=== PATIENT | male | born 1945 | race Caucasian/White ===

== ENCOUNTER → 2018-09-19 | Outpatient (REF) | payer OTHER | LOC: M LAB LCGH 15:42 | PROVIDERS: ATTEND Surgery | DX: R22.32 Localized swelling, mass and lump, left upper limb (principal) ==

== ENCOUNTER → 2019-02-09 | Outpatient (CLI) | payer MEDICARE, OTHER ==
--- NOTE | 2019-02-09 21:16 | ECGEPIP ---
[facility] Test Date: 2019-02-09 Pat Name: TIFFANIE MALCOLM Department: Room: - Gender: Male Community Assistant: FERNANDO : 1945 Requested By: Nathalie Cruz Order Number: [id number] Reading MD: Aleksandr Bowser Measurements Intervals [place] Rate: 72 P: 40 [place]: 275 QRS: -25 QRSD: 87 T: -3 QT: 366 QTc: 401 Interpretive Statements SINUS RHYTHM WITH FIRST DEGREE AV BLOCK MINIMAL VOLTAGE CRITERIA FOR LVH, CONSIDER NORMAL VARIANT POOR R WAVE PROGRESSION NO PRIOR Electronically Signed on 02-09-2019 21:16:41 EST by Aleksandr Bowser
== END ==
LOC: M EKG 14:14
PROVIDERS: ATTEND Internal Medicine Medical Oncology
DX: D03.8 Melanoma in situ of other sites (principal)

== ENCOUNTER → 2019-02-11 | Outpatient (CLI) | payer MEDICARE, OTHER ==
--- NOTE | 2019-02-13 13:27 | REP ---
PET/CT: History: Staging metastatic malignant melanoma, left axilla. Status post left axillary lymph node dissection. Comparisons: No comparison study TECHNIQUE: 73 minutes following the intravenous injection of a 8.5 mCi dose of F-18 FDG, three-dimensional PET scintigraphy is acquired from the skull vertex to the toes. Triplanar noncontrast CT scanning is acquired through the same anatomic range for attenuation correction, and image registration with scan parameters optimized to minimize radiation exposure to the patient. PET scintigraphy and CT datasets were fused and displayed on a workstation with multiplanar and projection display capability. PET/CT Findings: There is no abnormal hypermetabolic uptake in the lower extremities. Head and neck soft tissues are unremarkable. No abnormal hypermetabolic uptake is seen with in the chest. There are surgical clips in the left axillary soft tissues post lymph node dissection and there is some mildly elevated axillary soft tissue uptake adjacent to these consistent with postoperative inflammation, maximum standard uptake value 3.72. There is no evidence of supraclavicular or right-sided axillary amira uptake. No abnormal amira uptake is seen in the abdomen or pelvis. Normal hepatic and splenic uptake is seen. No abnormal skeletal uptake is appreciated. Impression: Minimal uptake in the left axillary soft tissues consistent with postoperative change. No PET CT evidence of metastatic disease. Electronically Signed by Shahab Brown MD 02/13/2019 01:19 P
== END ==
LOC: M PLARAD 10:17
PROVIDERS: ATTEND Internal Medicine Medical Oncology
DX: C77.3 Secondary and unspecified malignant neoplasm of axilla and upper limb lymph nodes (principal)
CPT/HCPCS: 78816; A9552

== ENCOUNTER → 2019-03-25 | Outpatient (REF) | payer MEDICARE, OTHER | LOC: M LAB REF 12:09 | PROVIDERS: ATTEND Nurse Practitioner Adult Health | DX: Z79.899 Other long term (current) drug therapy (principal) ==

== ENCOUNTER 2019-04-07 16:02 | Inpatient (IN) | payer MEDICARE, OTHER ==
[~2019-04-07] VITALS: Ht 170.2 cm; Wt 79.2 kg
[2019-04-07] MEDS ORDERED: OPDI1INJ IV (16:14)
[2019-04-07 16:51] LABS: BASO # 0.1 10^3/uL (0.0-0.2); BASO % 1.3 % (0.0-1.0); EOS # 0.2 10^3/uL (0.0-0.5); EOS % 4.4 % (0.0-3.0); HEMATOCRIT 46.7 % (42.0-52.0); HEMOGLOBIN 16.2 g/dl (13.5-17.5); LYMPH # 1.6 10^3/uL (1.5-5.0); LYMPH % 30.8 % (24.0-44.0); MEAN CORPUSCULAR HEMOGLOBIN 31.6 pg (27.0-33.0); MEAN CORPUSCULAR HGB CONC 34.7 g/dl (32.0-36.5); MEAN CORPUSCULAR VOLUME 91.2 fl (80.0-96.0); MONO # 0.6 10^3/uL (0.0-0.8); MONO % 11.8 % (0.0-5.0); NEUTROPHILS # 2.7 10^3/uL (1.5-8.5); NEUTROPHILS % 51.5 % (36.0-66.0); PLATELET COUNT, AUTOMATED 219 10^3/uL (150-450); RED BLOOD COUNT 5.12 10^6/uL (4.30-6.10); WHITE BLOOD COUNT 5.3 10^3/uL (4.0-10.0)
[2019-04-07 17:03] LABS: INR 1.14; PROTHROMBIN TIME 14.4 SECONDS (11.8-14.0)
--- NOTE | 2019-04-07 17:03 | REP ---
CT brain without contrast: History: Neurologic symptoms. Comparison brain CT imaging is a pre and postcontrast study from earlier today, done at 10:[address] findings: In the interval since the study done earlier today, there is some faint contrast enhancement within the interior of the two temporal lobe masses one on each side. Previously, these had large low density areas which implied cystic components. The gradual contrast enhancement suggests that they are not cystic. In any event, the metastatic pattern is unchanged morphologically. There is no evidence of hemorrhage or acute infarction. Impression: Multiple enhancing intracranial mass lesions with vasogenic edema morphologically unchanged from the study done 10:30 this morning except for the appearance of delayed contrast enhancement within the interior of the two largest lesions. The findings are consistent with intracranial metastatic disease. There is no evidence of hemorrhage, infarct or midline shift. Electronically Signed by Shahab Brown MD 04/08/2019 01:13 P
[2019-04-07 17:04] LABS: PARTIAL THROMBOPLASTIN TIME 31.2 SECONDS (25.0-38.4)
--- NOTE | 2019-04-07 17:12 | REP ---
Portable chest x-ray: Single view. History: CVA. Findings: Monitoring electrodes are seen. Surgical clips are noted in the left axilla. The lungs are symmetrically somewhat under aerated but free of infiltrate. Pleural angles are sharp. Heart size is borderline. Pulmonary vasculature is not increased. Impression: Relatively low level of inspiration. Surgical clips in the left axillary soft tissues. Borderline heart size. Otherwise no acute disease. Electronically Signed by Shahab Brown MD 04/07/2019 05:03 P
[2019-04-07 17:19] LABS: BLOOD UREA NITROGEN 17 MG/DL (7-18); CALCIUM LEVEL 9.4 MG/DL (8.8-10.2); CARBON DIOXIDE LEVEL 26 MEQ/L (21-32); CHLORIDE LEVEL 106 MEQ/L (98-107); CK-MB VALUE MASS 2.2 NG/ML (<3.6); CPK CREATINE PHOSPHOKINASE 126 U/L (39-308); CREATININE FOR GFR 1.16 MG/DL (0.70-1.30); GLOMERULAR FILTRATION RATE > 60.0 (>42); GLUCOSE, FASTING 91 MG/DL (70-100); MB/CK RELATIVE INDEX 1.75 (< OR =4); POTASSIUM SERUM 4.5 MEQ/L (3.5-5.1); SODIUM LEVEL 139 MEQ/L (136-145); TROPONIN I < 0.02 NG/ML (< 0.10)
[2019-04-07] MEDS ORDERED: dexameTHASONE 4 MG/ML 1ML VIAL (J1100) IV ONE (17:30)
[2019-04-07] MEDS ORDERED: OPDI240I IV (18:04)
[2019-04-07] MEDS ORDERED: ACETAMINOPHEN TAB 650MG DOSE (2X325MG) PO PRN (19:00)
[2019-04-07 19:30] VITALS: BP 149/88
--- NOTE | 2019-04-07 19:40 | IPNPDOC ---
Text Note Date of Service The patient was seen on 04/07/19. NOTE PRIMARY CARE PROVIDER:Dr. 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 He is currently undergoing chemotherapy nivolumab. Plan for 12 cycles. Completed the second Presents today with his son with complaint of a sudden left-sided facial droop, word finding difficulty, and left-sided facial numbness. According to patient the event had resolved prior to hospital presentation. He denied dysphagia, den ies chest pain, denies shortness of breath, denied vision changes, denies any headache, denied any dizziness, denied neck pain. REVIEW OF SYSTEMS: CONSTITUTIONAL: No fevers, denies chills, denies weight loss, denies lethargy HEENT: No rhinorrhea, no itchy eyes, no congesion, No tonsilor exudates CARDIOVASCULAR: No murmurs no palpitations and arrhythmias RESPIRATORY: Not cough, No SOB, no issues to report GASTROINTESTINAL: No nausea, no vomiting, no difficulty swallowing, no pain with eating, no diarrhea HEMATOLOGICAL: No bleeding GENITOURINARY:No Issues HEMATOLOGIC/LYMPHATIC: No swelling, No bleeding NEURO: Admitted to facial numbness and drooping that has resolved PAST MEDICAL HISTORY: Malignant melanoma with metastases to brain and bone Left axillary excisional biopsy 09/19/2018. Left axillary lymph node dissection 11/04/2018. SOCIAL HISTORY: Patient is a never smoker, never drinker. . Has five grown children. 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 FAMILY HISTORY: Maternal aunt had melanoma. Maternal grandfather may have had melanoma. A sister had ovarian cancer and mother a at 76 of lung cancer. ALLERGIES: Please see below. PE VITALS: see below GENERAL APPEARANCE: Alert no acute distress. Orientated to person, condition, rule out PTE going to see LUNGS: Clear to auscultation bilaterally. HEART: Normal S1, S2. No murmurs, no rubs, no gallops ABDOMEN: Soft. No masses. Bowel sounds are present. TRUNK/SPINE:Straight. EXTREMITIES: Moves all extremities equally. No gross deformities. PULSES: 2+ upper and lower extremity . NUERO: Normal ggxgqe-nvvo-tyexrs, cranial nerves II through XII intact, pupils round and reactive to light HOME MEDICATIONS: Please see below. LABORATORY DATA: See below. IMAGING: Chest XRAY:Relatively low level of inspiration. Surgical clips in the left axillary soft tissues. Borderline heart size. Otherwise no acute disease. HEAD CT: 16:22 Multiple enhancing intracranial mass lesions with vasogenic edema morphologically unchanged from the study done 10:30 this morning except for the appearance of delayed contrast enhancement within the interior of the two largest lesions. The findings are consistent with intracranial metastatic disease. There is no evidence of hemorrhage, infarct or midline shift. HEAD CT: 11:05 Bilateral supratentorial masses with enhancement and fairly prominent vasogenic edema consistent with metastatic disease. Individual lesions as described above. The largest lesion is in the left temporal lobe. This is 5 cm in diameter. MICROBIOLOGY: Please see below. 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 PLAN: 1. Facial droop difficulty with word finding, and facial numbness secondary metastasis to brain / cerebral edema - was called by the ER Attending -IV Decadron every 6 hours to decrease cerebral edema -Patient and patient's family has been extensively counseled on the possibility of intracranial bleed, due to increased intracranial pressure and brain metastases, along with cerebral edema. Patient and family, along with patient's caregiver verbalized understanding. They did not want to be transferred to another hospital and didn't want any neurosurgical intervention. -Should patient developed intracranial bleeding overnight. Family wants trial. CPR without intubation. 2. Bradycardia possibly 2/2 [place]'s Reflex -Telemetry -Continue to monitor 3.Chronic Hypertension -Low dose Norvasc DVT px w Lovenox Disposition: Guarded based on patient's cancer prognosis VS,Fishbone, I+O VS, Fishbone, I+O Laboratory Tests 04/07/19 16:25 Vital Signs Date Time Temp Pulse Resp B/P (MAP) Pulse Ox O2 Delivery O2 Flow Rate FiO2 04/07/19 18:00 58 153/79 (103) 96 Room Air 04/07/19 16:05 98.4 19 GME ATTESTATION GME ATTESTATION My faculty preceptor for this patient encounter was physically present during the encounter and was fully available. All aspects of the patient interview, examination, medical decision making process, and medical care plan development were reviewed and approved by the faculty preceptor. The faculty preceptor is aware and concurs with the plan as stated in the body of this note and will attest to such by his/her cosignature. ATTENDING NOTE I examined the patient at 555PM, discussed the case with the resident, reviewed the note and agree with the findings as documented. JASVIR DIETRICH DO Apr 07, 2019 19:40 CONRAD BRICE MD Apr 08, 2019 07:11
--- NOTE | 2019-04-07 21:06 | ECGEPIP ---
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
[2019-04-07 23:59] VITALS: BP 112/69
[2019-04-08 04:00] VITALS: BP 110/71
[2019-04-08 05:33] LABS: ALBUMIN 3.5 GM/DL (3.2-5.2); ALT/SGPT 24 U/L (12-78); BILIRUBIN,TOTAL 0.5 MG/DL (0.2-1.0); BLOOD UREA NITROGEN 18 MG/DL (7-18); CALCIUM LEVEL 9.3 MG/DL (8.8-10.2); CARBON DIOXIDE LEVEL 21 MEQ/L (21-32); CHLORIDE LEVEL 108 MEQ/L (98-107); CREATININE FOR GFR 1.13 MG/DL (0.70-1.30); GLOMERULAR FILTRATION RATE > 60.0 (>42); GLUCOSE, FASTING 136 MG/DL (70-100); POTASSIUM SERUM 4.4 MEQ/L (3.5-5.1); SODIUM LEVEL 137 MEQ/L (136-145); TOTAL PROTEIN 7.5 GM/DL (6.4-8.2)
[2019-04-08 08:00] VITALS: BP 136/88
[2019-04-08] MEDS: ENOXAPARIN 40 MG/0.4 ML SYRINGE (J1650) SC SCH (10:08)
[2019-04-08] MEDS ORDERED: AMLO25TA PO (10:35)
[2019-04-08 12:00] VITALS: BP 132/78
--- NOTE | 2019-04-08 14:04 | IPNPDOC ---
Text Note Date of Service The patient was seen on 04/08/19. 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 He is currently undergoing chemotherapy nivolumab. Plan for 12 cycles. Completed the second cycle. SUBJECTIVE: Patient was examined at bedside this morning. He has no acute complaints. He had no overnight activities.Denies chest pain, denies nausea, denied vomiting, denies changes in vision. Denies any recent illness. Denies shortness of breath, or difficulty breathing. OBJECTIVE: PHYSICAL EXAMINATION: GENERAL APPEARANCE: Patient is alert, surrounded by family HEENT: Pupils round and equally reactive to light LUNGS: Clear to auscultation bilaterally. HEART: Normal S1, S2. No murmurs, no rubs, no gallops EXTREMITIES: Moves all extremities equally. No gross deformities. PULSES: 2+ upper and lower extremity NEURO: Cranial nerves II-12 intact, normal bkljcv-rvzm-sbhqyu, able to follow commands, muscle strength 5 out of 5 in bilateral upper and lower extremity LABORATORY DATA: Please see below. IMAGING: Chest XRAY:Relatively low level of inspiration. Surgical clips in the left axillary soft tissues. Borderline heart size. Otherwise no acute disease. HEAD CT: 16:22 Multiple enhancing intracranial mass lesions with vasogenic edema morphologically unchanged from the study done 10:30 this morning except for the appearance of delayed contrast enhancement within the interior of the two largest lesions. The findings are consistent with intracranial metastatic disease. There is no evidence of hemorrhage, infarct or midline shift. HEAD CT: 11:05 Bilateral supratentorial masses with enhancement and fairly prominent vasogenic edema consistent with metastatic disease. Individual lesions as described above. The largest lesion is in the left temporal lobe. This is 5 cm in diameter. 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 PLAN: 1. Facial droop difficulty with word finding, and facial numbness secondary metastasis to brain / cerebral edema - Consulted oncology -Radiation oncology (Dr. Sainz) Consulted -IV Decadron every 6 hours to decrease cerebral edema -Patient and patient's family has been extensively counseled on the possibility of intracranial bleed, due to increased intracranial pressure and brain metastases, along with cerebral edema. Patient and family, along with patient's caregiver verbalized understanding. They did not want to be transferred to another hospital and didn't want any neurosurgical intervention. -Should patient developed intracranial bleeding overnight. Family wants trial. CPR without intubation. -Facial dropping has resolved, Patient continues to have difficulty with word finding 2. Bradycardia possibly 2/2 [place]'s Reflex -Telemetry -Continue to monitor 3.Chronic Hypertension -Low dose Norvasc (2.5 mg) 4. Rehab -He has been cleared by PT 5. DVT px w Lovenox Disposition: Guarded based on patient's cancer prognosis VS,Fishbone, I+O VS, Fishbone, I+O Laboratory Tests 04/07/19 16:25 04/08/19 04:35 Vital Signs Date Time Temp Pulse Resp B/P (MAP) Pulse Ox O2 Delivery O2 Flow Rate FiO2 04/08/19 12:00 97.8 91 17 132/78 (96) 91 Room Air I&O- Last 24 Hours up to 6 AM 04/08/19 06:00 Intake Total 360 ml Output Total 550 ml Balance -190 ml GME ATTESTATION GME ATTESTATION My faculty preceptor for this patient encounter was physically present during the encounter and was fully available. All aspects of the patient interview, examination, medical decision making process, and medical care plan development were reviewed and approved by the faculty preceptor. The faculty preceptor is aware and concurs with the plan as stated in the body of this note and will attest to such by his/her cosignature. ATTENDING NOTE I examined the patient at 820am, reviewed and edited the note and agree with the findings as documented by the resident. JASVIR DIETRICH DO Apr 08, 2019 14:04 CONRAD BRICE MD Apr 08, 2019 17:43
[2019-04-08 16:00] VITALS: BP 136/95
[2019-04-08 20:00] VITALS: BP_SYST 123; BP_DIAS 74; BP_DIAS 78
--- NOTE | 2019-04-08 20:30 | HPEPDOC ---
[facility] Medical History & Physical Date of Admission Apr 07, 2019 Date of Service: Apr 07, 2019 Attending Physician: CONRAD BRICE MD History and Physical Date of Service The patient was seen on 04/07/19. NOTE PRIMARY CARE PROVIDER:Dr. 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 He is currently undergoing chemotherapy nivolumab. Plan for 12 cycles. Completed the second Presents today with his son with complaint of a sudden left-sided facial droop, word finding difficulty, and left-sided facial numbness. According to patient the event had resolved prior to hospital presentation. He denied dysphagia, denies chest pain, denies shortness of breath, denied vision changes, denies any headache, denied any dizziness, denied neck pain. REVIEW OF SYSTEMS: CONSTITUTIONAL: No fevers, denies chills, denies weight loss, denies lethargy HEENT: No rhinorrhea, no itchy eyes, no congesion, No tonsilor exudates CARDIOVASCULAR: No murmurs no palpitations and arrhythmias RESPIRATORY: Not cough, No SOB, no issues to report GASTROINTESTINAL: No nausea, no vomiting, no difficulty swallowing, no pain with eating, no diarrhea HEMATOLOGICAL: No bleeding GENITOURINARY:No Issues HEMATOLOGIC/LYMPHATIC: No swelling, No bleeding NEURO: Admitted to facial numbness and drooping that has resolved PAST MEDICAL HISTORY: Malignant melanoma with metastases to brain and bone Left axillary excisional biopsy 09/19/2018. Left axillary lymph node dissection 11/04/2018. SOCIAL HISTORY: Patient is a never smoker, never drinker. . Has five grown children. 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 FAMILY HISTORY: Maternal aunt had melanoma. Maternal grandfather may have had melanoma. A sister had ovarian cancer and mother a at 76 of lung cancer. ALLERGIES: Please see below. PE VITALS: see below GENERAL APPEARANCE: Alert no acute distress. Orientated to person, condition, rule out PTE going to see LUNGS: Clear to auscultation bilaterally. HEART: Normal S1, S2. No murmurs, no rubs, no gallops ABDOMEN: Soft. No masses. Bowel sounds are present. TRUNK/SPINE:Straight. EXTREMITIES: Moves all extremities equally. No gross deformities. PULSES: 2+ upper and lower extremity . NUERO: Normal vlcrum-gyhm-ymtovp, cranial nerves II through XII intact, pupils round and reactive to light HOME MEDICATIONS: Please see below. LABORATORY DATA: See below. IMAGING: Chest XRAY:Relatively low level of inspiration. Surgical clips in the left axillary soft tissues. Borderline heart size. Otherwise no acute disease. HEAD CT: 16:22 Multiple enhancing intracranial mass lesions with vasogenic edema morphologically unchanged from the study done 10:30 this morning except for the appearance of delayed contrast enhancement within the interior of the two largest lesions. The findings are consistent with intracranial metastatic disease. There is no evidence of hemorrhage, infarct or midline shift. HEAD CT: 11:05 Bilateral supratentorial masses with enhancement and fairly prominent vasogenic edema consistent with metastatic disease. Individual lesions as described above. The largest lesion is in the left temporal lobe. This is 5 cm in diameter. MICROBIOLOGY: Please see below. 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 PLAN: 1. Facial droop difficulty with word finding, and facial numbness secondary metastasis to brain / cerebral edema - was called by the ER Attending -IV Decadron every 6 hours to decrease cerebral edema -Patient and patient's family has been extensively counseled on the possibility of intracranial bleed, due to increased intracranial pressure and brain metastases, along with cerebral edema. Patient and family, along with patient's caregiver verbalized understanding. They did not want to be transferred to another hospital and didn't want any neurosurgical intervention. -Should patient developed intracranial bleeding overnight. Family wants trial. CPR without intubation. 2. Bradycardia possibly 2/2 [place]'s Reflex -Telemetry -Continue to monitor 3.Chronic Hypertension -Low dose Norvasc DVT px w Lovenox Disposition: Guarded based on patient's cancer prognosis VS,Fishbone, I+O VS, Fishbone, I+O Laboratory Tests 04/07/19 16:25 Vital Signs Date Time Temp Pulse Resp B/P (MAP) Pulse Ox O2 Delivery O2 Flow Rate FiO2 04/07/19 18:00 58 153/79 (103) 96 Room Air 04/07/19 16:05 98.4 19 GME ATTESTATION GME ATTESTATION My faculty preceptor for this patient encounter was physically present during the encounter and was fully available. All aspects of the patient interview, examination, medical decision making process, and medical care plan development were reviewed and approved by the faculty preceptor. The faculty preceptor is aware and concurs with the plan as stated in the body of this note and will a ttest to such by his/her cosignature. ATTENDING NOTE I examined the patient at 555PM, discussed the case with the resident, reviewed the note and agree with the findings as documented. JASVIR DIETRICH DO Apr 07, 2019 19:40 CONRAD BRICE MD Apr 08, 2019 07:11 Home Medications Scheduled Amlodipine Besylate (Amlodipine Besylate) 2.5 Mg Tablet, 2.5 MG PO DAILY Nivolumab (Opdivo) 240 Mg/24 Ml Vial, 480 MG IV QMONTH DUE FOR CYCLE THREE ON 04/16/19 Allergies Coded Allergies: No Known Allergies (Unverified , 02/09/19) A-FIB/CHADSVASC A-FIB History Current/History of A-Fib/PAF?: No Current PO Anticoag Therapy: No CONRAD BRICE MD Apr 08, 2019 20:30
[2019-04-09] VITALS: BP_SYST 133; BP_DIAS 74; BP_DIAS 78
[2019-04-09 04:00] VITALS: BP 127/68
[2019-04-09 06:50] LABS: HEMATOCRIT 46.7 % (42.0-52.0); HEMOGLOBIN 15.6 g/dl (13.5-17.5); MEAN CORPUSCULAR HEMOGLOBIN 30.4 pg (27.0-33.0); MEAN CORPUSCULAR HGB CONC 33.4 g/dl (32.0-36.5); PLATELET COUNT, AUTOMATED 237 10^3/uL (150-450); RED BLOOD COUNT 5.13 10^6/uL (4.30-6.10); WHITE BLOOD COUNT 14.9 10^3/uL (4.0-10.0)
[2019-04-09 07:14] LABS: CALCIUM LEVEL 9.1 MG/DL (8.8-10.2); CREATININE FOR GFR 1.36 MG/DL (0.70-1.30); GLOMERULAR FILTRATION RATE 54.5 (>42); POTASSIUM SERUM 4.4 MEQ/L (3.5-5.1)
[2019-04-09 07:41] VITALS: BP 146/67
[2019-04-09] MEDS ORDERED: SLF 3 ML SYR IV PRN (07:45)
--- NOTE | 2019-04-09 08:49 | IPNPDOC ---
Text Note Date of Service The patient was seen on 04/09/19. NOTE S: Patient seen and examined at bedside. No acute overnight events reported. Family at bedside. No new medical complaints this morning. Concerned regarding further imaging. O: PHYSICAL EXAMINATION: GENERAL APPEARANCE: NAD, lying comfortably in bed, family at bedside HEENT: NC/AT, EOMI LUNGS: Clear to auscultation bilaterally. HEART: Normal S1, S2. No murmurs, no rubs, no gallops EXTREMITIES: Moves all extremities equally. No gross deformities. 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 #focal neurologic deficits - Facial droop, word finding, and facial numbness - secondary metastasis to brain / cerebral edema - Consulted oncology - assistance appreciated - CT chest/abd/pelvis pending -Radiation oncology (Dr. Sainz) Consulted - assistance appreciated - plan to continue RT today -IV Decadron q6h for cerebral edema -Patient and patient's family has been extensively counseled on the possibility of intracranial bleed, due to increased intracranial pressure and brain metastases, along with cerebral edema. Patient and family, along with patient's caregiver verbalized understanding. They did not want to be transferred to another hospital and didn't want any neurosurgical intervention. -Should patient developed intracranial bleeding overnight. Family wants trial CPR without intubation. -Facial dropping has resolved, Patient continues to have difficulty with word finding #Bradycardia -possibly 2/2 [place]'s Reflex? -continue Telemetry #Chronic Hypertension -Low dose Norvasc (2.5 mg) #Rehab -He has been cleared by PT #DVT - to d/w oncology Disposition: pending further imaging, RT; guarded prognosis VS,Fishbone, I+O VS, Fishbone, I+O Laboratory Tests 04/09/19 06:36 Vital Signs Date Time Temp Pulse Resp B/P (MAP) Pulse Ox O2 Delivery O2 Flow Rate FiO2 04/09/19 07:41 97.4 52 18 146/67 (93) 94 Room Air I&O- Last 24 Hours up to 6 AM 04/09/19 06:00 Intake Total 900 ml Output Total 925 ml Balance -25 ml TIFFANY LAWLER MD Apr 09, 2019 08:49
[2019-04-09] MEDS ORDERED: ISOVUE-370 76% 100ML VIAL (Q9967) As Ordered ONE (09:15)
[2019-04-09] MEDS: NS 1,000 ML IV SCH ×2 (09:50→22:01)
[2019-04-09] MEDS: ENOXAPARIN 40 MG/0.4 ML SYRINGE (J1650) SC SCH (09:52)
[2019-04-09] MEDS: GASTROGRAFIN SOLUTION 30ML PO SCH ×2 (09:53→10:02)
[2019-04-09 11:29] VITALS: BP 150/73
--- NOTE | 2019-04-09 11:59 | REP ---
CT of the chest with IV contrast for melanoma staging: Comparison is a PET scan dated 02/11/2019. There is a soft tissue mass-like density in the left axilla containing surgical clips measuring 5.5 cm craniocaudad by 3.3 cm transversely by 3.5 cm AP. This could represent surgical scarring, malignancy or combination. No lung masses or nodules are identified. There are no infiltrates or pleural effusions. There is no mediastinal or hilar lymph node enlargement. There is no lymph node enlargement in the right axilla. There are findings in the left axilla as previously described. The thoracic aorta is unremarkable. The cardiac size is normal. There is no pericardial effusion. Impression: There is a soft tissue mass-like density in the left axilla containing surgical clips as described above. There are no other masses or nodules. There is no adenopathy. There are no infiltrates or pleural effusions. There are no lytic, blastic or destructive skeletal changes. Electronically Signed by Neal Carvajal MD 04/09/2019 11:51 A
--- NOTE | 2019-04-09 12:06 | REP ---
CT of the abdomen and pelvis with IV and oral contrast for melanoma staging: The study is performed contiguous with the chest CT this same date. Comparison is the PET scan dated 02/11 2019. The study includes both immediate and delayed scanning after IV contrast. The hepatic parenchyma, gallbladder, pancreas, spleen, adrenals and kidneys are normal size and homogeneous on both phases of the study. The abdominal aorta is unremarkable. There is no periaortic adenopathy or mass. No focal or diffuse bowel wall thickening is identified. There is no ascites. The mesentery is unremarkable. Pelvis: The appendix and terminal ileum are unremarkable. There are occasional diverticula in the sigmoid colon. There is no diverticulitis. There is no adenopathy or ascites. The bladder is unremarkable. There are no lytic, blastic or destructive skeletal changes. There is advanced degenerative disc disease at L5 S1. There is mild age indeterminate grade 1 compression deformity of the L1 vertebral body. Impression: There is no evidence of adenopathy or metastatic disease. No ascites. There are occasional sigmoid colon diverticula without diverticulitis. There is age indeterminate grade 1 compression deformity of the L1 vertebral body. Electronically Signed by Neal Carvajal MD 04/09/2019 11:57 A
[2019-04-09] MEDS: SLF 3 ML SYR IV SCH ×2 (14:00→22:00)
[2019-04-09 16:00] VITALS: BP 162/80
[2019-04-09 20:00] VITALS: BP 136/72
[2019-04-10] VITALS: BP 130/69
[2019-04-10 04:00] VITALS: BP 113/70
[2019-04-10 05:12] LABS: HEMATOCRIT 42.6 % (42.0-52.0); HEMOGLOBIN 14.2 g/dl (13.5-17.5); MEAN CORPUSCULAR HEMOGLOBIN 30.7 pg (27.0-33.0); MEAN CORPUSCULAR HGB CONC 33.3 g/dl (32.0-36.5); PLATELET COUNT, AUTOMATED 204 10^3/uL (150-450); RED BLOOD COUNT 4.63 10^6/uL (4.30-6.10)
[2019-04-10 05:39] LABS: BLOOD UREA NITROGEN 27 MG/DL (7-18); CALCIUM LEVEL 8.2 MG/DL (8.8-10.2); CARBON DIOXIDE LEVEL 21 MEQ/L (21-32); CHLORIDE LEVEL 111 MEQ/L (98-107); CREATININE FOR GFR 1.22 MG/DL (0.70-1.30); GLOMERULAR FILTRATION RATE > 60.0 (>42); GLUCOSE, FASTING 133 MG/DL (70-100); POTASSIUM SERUM 4.4 MEQ/L (3.5-5.1); SODIUM LEVEL 139 MEQ/L (136-145)
[2019-04-10] MEDS: SLF 3 ML SYR IV SCH (05:46)
--- NOTE | 2019-04-10 06:51 | CR ---
MEDICAL ONCOLOGY INPATIENT CONSULTATION DATE OF CONSULTATION: 04/08/2019 DIAGNOSIS: Stage III, BRAF negative malignant melanoma on adjuvant immunotherapy presenting with seizure found to have multifocal intracranial metastases. REQUESTING PHYSICIAN: Magdaleno Brady DO of the hospitalist service. HISTORY OF PRESENT ILLNESS: Jermaine Armendariz is a 73-year-old man who presented to [facility] last summer with new left axillary lump. CT showed a large left axillary lymph node conglomerate with no other suspicious findings. He underwent excisional biopsy of one of those nodes, 09/19/2018 which was positive for malignant melanoma. He self-referred to [facility], underwent left axillary lymph node dissection after initial staging CTs showed no other suspicious disease sites. Final pathology showed 1 of 31 lymph nodes involved with melanoma, BRAF wild type. He was recommended for adjuvant treatment with nivolumab, a checkpoint inhibitor. He presented to [facility] for cancer care 02/09/2019 for treatment, began nivolumab 02/16/2019 and has completed two cycles of treatment (nivolumab on day 1 q. 28 days, when, on the , yesterday, while at the dinner table he developed left facial drooling then droop with some abnormal arm movements. His family reports he also had been a little more talkative and was having some word-finding difficulties and memory problems over the preceding 3 days. In the emergency room noncontrast head CT revealed bilateral supratentorial masses with enhancement, prominent vasogenic edema, largest left temporal lobe lesion 5 cm. Followup with contrast CT revealed multiple enhancing lesions, including 5.1 cm mass in the left temporal lobe, a right temporal lobe 2.2 cm lesion, vasogenic edema surrounding both, left parietal lobe edema with a 5 mm nodule, left occipital lobe 6 mm nodule, low-density left temporal lobe lesion 1.6 cm and another right temporal lobe lesion. He was started on dexamethasone. Initial consideration was transfer to [place] where a neurosurgical ICU was available, but this was apparently triaged on the phone and it was deemed he should be admitted here. Labs so far on this admission unremarkable. At the bedside, Mr. Armendariz is surrounded by family. He is awake and alert, contributes to the conversation but has word-finding difficulties and some mild word salad. He makes good eye contact. PAST MEDICAL HISTORY: Melanoma, as discussed above. PAST SURGICAL HISTORY Left axillary biopsy and node dissection, as discussed above. ALLERGIES: No known drug allergies. HOME MEDICATIONS: No home medications. SOCIAL HISTORY: Never smoker, never drinker. , five children. 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 REVIEW OF SYSTEMS: The patient acknowledges difficulty with his mouth and food yesterday. Denies recent weakness but his family contributes that he has seemed not quite himself over several days, declining food, having difficulty with words and energy, sleeping a little more. Full review of systems not completed. PHYSICAL EXAMINATION: Limited exam. VITAL SIGNS: Temperature 97.5, blood pressure 123/74, heart rate 78, respiratory 20, O2 sat 93% room air. Patient is a robust appearing older gentleman. No facial asymmetry. Makes good eye contact, responds to questions and commands. NEUROLOGIC EXAMINATION: Cranial nerves II-XII grossly intact. Muscle strength mildly reduced but 5/5 involving right flexion and extension, otherwise normal 5/5 muscle strength upper and lower extremities. Sensation is intact and symmetric bilaterally. IMPRESSION: 73-year-old man recently diagnosed with stage III, BRAF negative malignant melanoma involving left axillary lymph node status post left axillary node dissection with no convincingly identified primary skin lesion, who was recently on adjuvant immunotherapy for stage III melanoma and now presents with multifocal intracranial metastases with vasogenic edema, symptomatic. RECOMMENDATIONS: 1. Radiation oncology evaluation. 2. Surgical removal of malignant melanoma metastases depends on the number of metastases, their size. The patient's family, speaking in his behalf says that he does not want any sort of surgery if it leaves him nonintact cognitively and they quite readily are not in favor of surgery. It is likely not clinically a possibility in any case. 3. The family had many questions about the value of radiation. I deferred most of these to Dr. Arce. As the size and number of these tumors, the edema will determine the potential benefits and side effects, because it will determine the amount of radiation he will need. The family then asked and discussed whether Mr. Armendariz should have any treatment at all, but rather, for quality of life reasons simply go home with hospice care. We talked over all possibilities. I deferred to the family and the patient the final decision, but suggested that at minimum they discuss the case with Dr. Arce. In answer to their questions about what would happen if no treatment were given I explained, despite dexamethasone and antiseizure medicines, eventually the patient would probably develop multiple, possibly intractable seizures, could develop intracranial bleeding and stroke, which would not necessarily be immediately lethal. At length the family agreed to talk to Dr. Arce. I recommended also CT chest, abdomen and pelvis. If there are multiple distant metastases, hospice care without radiation may make the most sense; if there are only intracranial metastases, then this may lend weight to the value of trying to control disease in the very short term via radiation. The family thanked me and I will continue to follow. MTDD
[2019-04-10 08:00] VITALS: BP 169/93
--- NOTE | 2019-04-10 08:22 | DS.PDOC ---
Discharge Summary General Date of Admission Apr 07, 2019 at 17:47 Date of Discharge Apr 10, 2019 Attending Physician: TIFFANY LAWLER MD Specialist/Consultants Involve: Nathalie Martinez MD Specialist/Consultants Involve Neal Arce MD Discharge Summary PROCEDURES PERFORMED DURING STAY: CT scan for CT simulation of entire brain field. ADMITTING DIAGNOSES: 1. Facial droop, word-finding difficulty, and facial numbness secondary to brain metastases with vasogenic cerebral edema 2. Malignant melanoma, BRAF negative, stage III involving left axillary lymph node s/p left axillary node dissection, unknown primary lesion, on adjuvant immunotherapy 3. Bradycardia secondary to Manuel[place]'s reflex 4. Chronic hypertension DISCHARGE DIAGNOSES: 1. Facial droop, word-finding difficulty, and facial numbness secondary to brain metastases with vasogenic cerebral edema 2. Malignant melanoma, BRAF negative, stage IV with brain metastases and left axillary lymph node involvement s/p left axillary node dissection, unknown primary lesion, on adjuvant immunotherapy and radiation 3. Bradycardia secondary to [place]'s reflex 4. Chronic hypertension COMPLICATIONS/CHIEF COMPLAINT: Melanoma W/Mets Brain. HISTORY OF PRESENT ILLNESS: Jermaine Armendariz is a 73-year-old male patient who presented to the [facility] emergency department with his son complaining of sudden-onset left-sided facial droop, word finding difficulty, and left-sided facial numbness. Facial droop and numbness had resolved by the time of patient presentation. Word finding difficulty persisted. Patient denied dysphagia, chest pain, dyspnea, vision changes, headache, dizziness, neck pain. Head CT within the emergency department revealed multiple enhancing intracranial mass lesions with vasogenic edema. Pt was started on IV dexamethasone to address this vasogenic edema. HOSPITAL COURSE: Pt was admitted to the progressive care unit and put on telemetry. IV dexamethasone was continued and amlodipine was added to address hypertension. He continued to have word-finding difficulties and specific difficulty remembering names throughout his admission. Facial droop and numbness did not recur. Consults by Dr. Martinez of oncology and Dr. Arce of radiation oncology were placed and their assistance was greatly appreciated. CTs of abdomen, pelvis, and chest were ordered and revealed no additional metastases. Pt's neurological status, electrolyte status, and complete blood counts were routinely assessed, and physical therapy evaluation was ordered. PT assessment was that patient was safe to return to previous living situation. He received one treatment of CT scanning and simulation during this admission on 04/09/2019 and will continue outpatient. Pt was prescribed 10 days of oral dexamethasone to continue outpatient treatment of his edema with taper to be considered by Drs. Martinez and Yazmin with whom he will be following on an outpatient basis. He was further prescribed 30 days of oral Protonix for outpatient GI prophylaxis per steroid use. DISCHARGE MEDICATIONS: Please see below. ALLERGIES: Please see below. PHYSICAL EXAMINATION ON DISCHARGE: VITAL SIGNS: Please see below. GENERAL: Pt appears stated age and is sitting propped up in bed in no acute distress. HEENT: Normocephalic, atraumatic. CARDIOVASCULAR: Regular rate and rhythm. No murmurs, rubs, or gallops. PULMONARY: Clear to auscultation b/l. No wheezes, rales, or rhonchi. ABDOMEN: Abdomen soft with no organomegaly. EXTREMITIES: No peripheral edema. NEUROLOGICAL: CNII-XII intact. Ahhahk-lw-hjdl showed no dysmetria. Elbow flexion 5/5 b/l. Elbow extension 5/5 b/l. Wrist extension 5/5 b/l. Finger abduction 5/5 b/l. 3rd finger DIP flexion 5/5 b/l. Hip flexion 5/5 b/l. Knee extension 5/5 b/l. Dorsiflexion 5/5 b/l. Great toe extension 5/5 b/l. Plantarflexion 5/5 b/l. PSYCHIATRIC: Pt is calm and cooperative. Full affect. Pt is able to follow commands and respond to questions appropriately with the exception of notable word-finding difficulty and specific impaired memory for person names. LABORATORY DATA: Please see below. IMAGIN. CT head without contrast, from report: "Multiple enhancing intracranial mass lesions with vasogenic edema morphologically unchanged from the study done 10:30 this morning except for the appearance of delayed contrast enhancement within t he interior of the two largest lesions. The findings are consistent with intracranial metastatic disease. There is no evidence of hemorrhage, infarct or midline shift." 2. Portable chest x-ray, from report: "Relatively low level of inspiration. Surgical clips in the left axillary soft tissues. Borderline heart size. Otherwise no acute disease." 3. CT abdomen and pelvis with IV contrast and oral contrast, from report "There is no evidence of adenopathy or metastatic disease. No ascites. There are occasional sigmoid colon diverticula without diverticulitis. There is age indeterminate grade 1 compression deformity of the L1 vertebral body." 4. CT chest with IV contrast, from report: "There is a soft tissue mass-like density in the left axilla containing surgical clips as described above. There are no other masses or nodules. There is no adenopathy. There are no infiltrates or pleural effusions. There are no lytic, blastic or destructive skeletal changes." PROGNOSIS: Poor ACTIVITY: As tolerated DIET: As tolerated. DISCHARGE PLAN: Discharge to previous living situation with ongoing follow-up with oncology and radiation oncology. Continue steroid dosing with possibility of taper managed by oncology and radiation oncology. Pt prescribed Protonix for prevention of steroid-induced stomach irritation. DISPOSITION: Discharge to previous living situation. DISCHARGE INSTRUCTIONS: 1. Follow-up with primary care physician within 14 days. 2. Continue to follow up with oncology and radiation oncology as scheduled. 3. Continue taking steroids and proton pump inhibitor as prescribed. 4. Return to emergency department in the event of recurrence of facial drooping or numbness, or for any other emergent concerns. ITEMS TO FOLLOWUP ON ON OUTPATIENT: 1. Ongoing melanoma treatment with oncology and radiation oncology. 2. Oral steroid treatment with possibility of taper. 3. Ongoing PPI treatment. DISCHARGE CONDITION: Stable. TIME SPENT ON DISCHARGE: Greater than 30 minutes. Vital Signs/I&Os Vital Signs Date Time Temp Pulse Resp B/P (MAP) Pulse Ox O2 Delivery O2 Flow Rate FiO2 04/10/19 04:00 97.4 58 18 113/70 (84) 96 Room Air I&O- Last 24 Hours up to 6 AM 04/10/19 06:00 Intake Total 840 ml Output Total 1650 ml Balance -810 ml Laboratory Data Labs 24H Laboratory Tests 2 04/10/19 05:01: Nucleated Red Blood Cells % (auto) 0.0, Anion Gap 7L, Glomerular Filtration Rate > 60.0, Calcium Level 8.2L CBC/BMP Laboratory Tests 04/10/19 05:01 Discharge Medications Scheduled Amlodipine Besylate (Amlodipine Besylate) 2.5 Mg Tablet, 2.5 MG PO DAILY Dexamethasone (Decadron) 6 Mg Tablet, 6 MG PO Q6H Nivolumab (Opdivo) 240 Mg/24 Ml Vial, 480 MG IV QMONTH, (Reported) DUE FOR CYCLE THREE ON 04/16/19 Pantoprazole Sodium (Protonix) 20 Mg Tablet.dr, 20 MG PO DAILY Allergies Coded Allergies: No Known Allergies (Unverified , 02/09/19) GME ATTESTATION GME ATTESTATION My faculty preceptor for this patient encounter was physically present during the encounter and was fully available. All aspects of the patient interview, examination, medical decision making process, and medical care plan development were reviewed and approved by the faculty preceptor. The faculty preceptor is aware and concurs with the plan as stated in the body of this note and will attest to such by his/her cosignature. NEAL DEAL OMS-III Apr 10, 2019 08:22
[2019-04-10] MEDS ORDERED: DECA6TAB PO (08:32)
[2019-04-10] MEDS ORDERED: PROT20TA11 PO (08:36)
[2019-04-10 08:38] VITALS: BP 169/92
[2019-04-10] MEDS: ENOXAPARIN 40 MG/0.4 ML SYRINGE (J1650) SC SCH (08:38)
[2019-04-13] MEDS ORDERED: DEXA4TA PO (14:45)
== END 2019-04-10 09:20 | disposition home or self-care (01) | DRG 54 ==
LOC: EDBD 16:02 → M ED 16:02 → M ED INP 17:47 → ENRESERV 18:12 → M PCU 19:23
PROVIDERS: ADMIT Internal Medicine; ATTEND Internal Medicine
DX: C79.31 Secondary malignant neoplasm of brain (principal); G93.6 Cerebral edema; C79.51 Secondary malignant neoplasm of bone; E24.9 Cushing's syndrome, unspecified; C49.9 Malignant neoplasm of connective and soft tissue, unspecified; C43.9 Malignant melanoma of skin, unspecified; R29.810 Facial weakness; R00.1 Bradycardia, unspecified; I10 Essential (primary) hypertension; Z79.899 Other long term (current) drug therapy

== ENCOUNTER → 2019-04-07 | Outpatient (CLI) | payer MEDICARE, OTHER ==
[~2019-04-07] MED LIST: AMLO25TA PO; ISOVUE-370 76% 100ML VIAL (Q9967) As Ordered ONE; OPDI1INJ IV; OPDI240I IV
--- NOTE | 2019-04-07 13:17 | REP ---
CT brain without and with IV contrast: History: Memory changes. History of malignant melanoma. Rule out metastasis. 75 mL of intravenous Isovue 370 is administered. Comparison is made with images from PET/CT study February 11, 2019. CT findings: Preliminary digital analysis lead radiograph is unremarkable. Vascular calcifications noted in the distal vertebral and distal carotid arteries. The visualized paranasal sinuses are clear. The bony calvarium is intact. On soft tissue window settings, there are is evidence of a metastatic disease pattern intracranially. There is a large low density mass in the left temporal lobe measuring 5.1 cm in greatest diameter. There is a small low-density lesion in the right temporal lobe measuring 2.2 cm in greatest diameter. There is vasogenic edema moderate in degree surrounding these two lesions. There is an area of edema surrounding a small metastatic nodule in the left parietal lobe. This nodule measures 5 mm in size. There is a similar sized enhancing nodule in the left occipital lobe, 6 mm. Postcontrast images demonstrate an enhancing nodule in the lateral aspect of the low density lesion in the left temporal lobe. This enhancing nodules 1.6 cm in diameter. There is a similar focus of enhancement in the cystic lesion in the right temporal lobe. There is some attenuation of the body of the lateral ventricles bilaterally. No midline shift is appreciated. No posterior fossa lesion is appreciated. Impression: Bilateral supratentorial masses with enhancement and fairly prominent vasogenic edema consistent with metastatic disease. Individual lesions as described above. The largest lesion is in the left temporal lobe. This is 5 cm in diameter. Electronically Signed by Shahab Brown MD 04/07/2019 02:39 P
== END ==
LOC: M RAD 09:53
PROVIDERS: ATTEND Internal Medicine Medical Oncology
DX: G93.9 Disorder of brain, unspecified (principal); Z85.820 Personal history of malignant melanoma of skin

== ENCOUNTER → 2019-04-17 | Outpatient (RCR) | payer MEDICARE, OTHER ==
--- NOTE | 2019-04-09 14:27 | RADONC ---
RADIATION ONCOLOGY SIMULATION NOTE DATE: 04/09/2019 CHART NUMBER: [id number] SIMULATION NOTE: Mr. Armendariz was taken to the CT scan for CT simulation of his whole brain field. CT was accomplished without difficulty or discomfort. Radiation treatment planning is underway and radiation treatments will begin today. An immobilization device including a mask was created without difficulty or discomfort. It will be used throughout the course of treatment. I was physically present throughout the course of CT simulation.
--- NOTE | 2019-04-09 15:19 | RADONC ---
RADIATION ONCOLOGY CONSULTATION NOTE DATE OF SERVICE: 04/09/2019 CHART NUMBER: [id number] DIAGNOSIS: Malignant melanoma. STAGE: Stage IV, brain metastasis. ECOG PERFORMANCE STATUS: 3. CONSULTATION NOTE: Mr. Armendariz is a very pleasant 73-year-old white male with the diagnosis of what appears to be metastatic malignant melanoma with multiple brain metastasis who is presenting to us today for consideration of palliative radiation therapy to his whole brain. HISTORY OF PRESENT ILLNESS: The patient was in his usual state of health until late spring when he first noticed some bumps in his left axilla. CT scans were done and showed six adjacent 3 cm left axillary lymph nodes. He then underwent an excisional biopsy of one of the nodes on 09/19/2018 and pathology revealed malignant melanoma. The patient was subsequently seen in [facility] and underwent left axillary lymph node dissection on 11/04/2018. Pathology revealed 04/17 lymph nodes involved with melanoma. The patient was subsequently referred for immunotherapy. On 12/14/2018, the patient underwent a left arm punch biopsy on the site where he originally had a dark spot but no melanoma was seen. He was treated by Dr. Martinez with immunotherapy. More recently he developed a sudden facial droop and difficulty finding words. He had left-sided facial numbness. He was seen at [facility] and a CT scan of the brain was done on 04/07/2018 that showed multiple brain metastasis. The largest one was 5.1 cm in diameter. There was a second one on the contralateral side of the brain at 2.2 cm. There was a third at 1.6 cm and three other areas measuring approximately 6 and 5 mm. There was a significant amount of edema and Dr. Martinez had initiated Decadron treatments. It was recommended that the patient be sent down to [place] for neurosurgery consult; however, the patient's family wished to have him treated here and did not wish to do anything that would cause any kind of intellectual or mental losses. PAST MEDICAL HISTORY: The patient's past medical history is noncontributory. He has been in excellent health. ALLERGIES: The patient has NO KNOWN DRUG ALLERGIES. FAMILY HISTORY The patient's family history is positive for maternal aunt with melanoma. Maternal grandfather with melanoma and a sister with ovarian cancer. His mother had lung cancer. SOCIAL HISTORY: The patient does not smoke cigarettes nor abuse alcohol. REVIEW OF SYSTEMS: The patient's review of systems at this time is generally noncontributory. Denies nausea, vomiting, fevers, chills, night sweats, diplopia, headaches, anxiety or depression, anorexia, weight loss, visual disturbances, chest pain, urinary or bowel difficulties, bone pain, or neurological problems. PHYSICAL EXAMINATION: The patient is a well-developed, well-nourished male in no acute distress. HEENT exam is normocephalic, atraumatic. Extraocular movements are intact. There is no palpable cervical, supraclavicular, infraclavicular, axillary, or inguinal lymphadenopathy present. Lungs are clear to auscultation and percussion. Heart has a regular rate and rhythm. Abdomen is benign with no hepatosplenomegaly, masses, or tenderness. Skeletal examination reveals no tenderness to pressure or percussion of the bony skeleton. Extremities reveal no clubbing, cyanosis, or edema. Neurologic exam is grossly intact, as is the remainder of the physical examination. ASSESSMENT: I had a lengthy discussion with this patient and his family. We discussed the possibility of whole brain radiation therapy initially as a therapeutic option. We did discuss in addition, the possibility of transferring him to [place] for a neurosurgical consul. I explained that controlling his larger masses is best achieved with surgical excision. I did stress to the patient that our likelihood of controlling, especially the 5 cm nodule, is exceedingly small. I explained to them too that if this were the only two lesions, I would highly push for either neurosurgery or perhaps gamma knife. Indeed if there were just the three larger lesions I would have even most stongly recommended a consideration of of one or the other. In light of the fact that there appear to be at least six lesions and an MRI was actually not done so there could be more, having whole-brain radiation therapy is somewhat reasonable at this time considering his family's wishes. We can then follow up with MRIs and possibly refer him if needed for radiosurgery as an option after. In addition, Dr. Martinez has ordered new scanning to be undertaken of the body to see whether or not this disease is in multiple areas. Clearly, if there are multiple sites of disease, the patient's family can be more secure in their decision to go with palliative radiation as an initial step. I have scheduled the patient for simulation this morning and radiation will begin today. I have discussed this case with the patient's medical oncologist, Dr. Martinez as well, and we are in agreement in our overall plan. If the patient's family changes their mind, we can always refer them to the neurosurgeons in [place]. cc: MD GENO Simmons
--- NOTE | 2019-04-14 16:31 | RADONC ---
RADIATION ONCOLOGY PROGRESS NOTE DATE: 04/13/2019 CHART NUMBER: [id number] PROGRESS NOTE: Mr. Armendariz is presently at a dose of 900 cGy to his whole brain and is tolerating treatments quite well at this point with no complaints related to his radiation therapy. He is having no headaches or other problems. REVIEW OF SYSTEMS: The patient's review of systems is noncontributory. Denies nausea, vomiting, fevers, chills, night sweats, diplopia, headaches, anxiety or depression, anorexia, weight loss, visual disturbances, chest pain, urinary or bowel difficulties, bone pain, or neurological problems. PHYSICAL EXAMINATION: The patient's skin is in good condition with no evidence of radiation change present. The remainder of his physical exam remains unchanged. ASSESSMENT: Mr. Armendariz is tolerating treatments quite well and radiation will continue as scheduled. In addition, I have given the patient a new Decadron taper schedule. He is presently taking 6 mg of Decadron q.6 hours. I am decreasing that to 4 mg q.3 hours and then he has a subsequent taper schedule over the next several weeks. We will continue to follow him closely and make adjustments as needed. In the meantime, radiation will continue as scheduled.
[~2019-04-17] MED LIST changes: +DECA6TAB PO; +DEXA4TA PO; -ISOVUE-370 76% 100ML VIAL (Q9967) As Ordered ONE; +KEPP1TAB PO; +PROT20TA11 PO
== END ==
LOC: M ONCR 04-09 08:46
PROVIDERS: ATTEND Radiology Radiation Oncology
DX: C79.31 Secondary malignant neoplasm of brain (principal)

== ENCOUNTER 2019-04-22 13:35 | Outpatient (RCR) | payer MEDICARE, OTHER ==
--- NOTE | 2019-04-21 07:11 | RADONC ---
RADIATION ONCOLOGY PROGRESS NOTE DATE: 04/20/2019 CHART NUMBER: [id number] Mr. Armendariz is presently at a dose of 2400 cGy to his brain and is tolerating treatments quite well at this point with no complaints related to his radiation therapy. He is having no headaches or other problems. He is continuing with his Decadron taper schedule. REVIEW OF SYSTEMS: The patient's review of systems is noncontributory. He denies nausea, vomiting, fevers, chills, night sweats, diplopia, headaches, anxiety or depression, anorexia, weight loss, visual disturbances, chest pain, urinary or bowel difficulties, bone pain or neurological problems. PHYSICAL EXAMINATION The patient's skin is in good condition with no evidence of radiation change present. There is no moist or dry desquamation. The remainder of his physical exam remains unchanged. Mr. Armendariz is tolerating treatments quite well and radiation will continue as scheduled.
--- NOTE | 2019-04-23 07:45 | RADONC ---
RADIATION ONCOLOGY TREATMENT SUMMARY DATE: 04/22/2019 CHART NUMBER: [id number] DIAGNOSIS: Malignant melanoma. STAGE: IV, brain metastasis. ECOG PERFORMANCE STATUS: 1 Mr. Armendariz is a very pleasant 73-year-old white male with the diagnosis of metastatic malignant melanoma who presented to us with multiple brain metastasis for consideration of palliative radiation therapy to the whole brain. We treated the patient to his whole brain for a total dose of 3000 cGy delivered in 10 fractions of 300 cGy each delivered over 13 elapsed days from 04/09/2019 through 04/22/2019. The patient's whole brain was treated on the linear accelerator utilizing a 6 mV photon beam via 3D conformal technique with left and right lateral aranda. Mr. Armendariz tolerated his treatments quite well and was able complete therapy as prescribed without interruption. The patient has been given a Decadron taper schedule and is scheduled see me again in 1 month for further followup. He will also continue to be followed by his other physicians as well. Thank you for allowing us to participate in the care of this very pleasant gentleman. If I could be of any further assistance or provide you with any information, please feel free to contact me at anytime. cc: Nathalie Martinez MD
[2019-05-08] MEDS ORDERED: AMLO25TA PO (14:03)
[2019-05-08] MEDS ORDERED: PANT20TA51 PO (14:03)
[2019-05-08] MEDS ORDERED: DEXA4TA PO (14:03)
[2019-05-11] MEDS ORDERED: LORA0.5T5 PO (13:59)
[2019-05-11] MEDS ORDERED: MORP20SO3 PO (13:59)
[2019-05-11] MEDS ORDERED: HYOS125TA PO (13:59)
== END 2019-05-16 ==
LOC: M ONCR 13:35
PROVIDERS: ATTEND Radiology Radiation Oncology
DX: C79.31 Secondary malignant neoplasm of brain (principal); C43.9 Malignant melanoma of skin, unspecified

== ENCOUNTER → 2019-05-07 | Outpatient (CLI) | payer MEDICARE, OTHER ==
[~2019-05-07] MED LIST changes: +HYOS125TA PO; +LORA0.5T5 PO; +MORP20SO3 PO; +PANT20TA51 PO
--- NOTE | 2019-05-07 11:50 | REP ---
Clinical: Cough. History of melanoma. Technique: PA and lateral. Comparison: None. Findings: Mediastinum and cardiac silhouette are normal. Lung aranda are clear. Evidence for prior left axillary node dissection. Skeletal structures demonstrate age-related changes. Impression: No acute consolidation or effusion. Electronically Signed by Lance Bolaños MD 05/07/2019 11:41 A
== END ==
LOC: M RAD 11:26
PROVIDERS: ATTEND Internal Medicine Medical Oncology
DX: R05 Cough (principal)

== ENCOUNTER 2019-05-08 09:00 | Inpatient (IN) | payer MEDICARE, OTHER ==
[~2019-05-08] VITALS: Ht 170.2 cm; Wt 77.3 kg
[~2019-05-08 09:00] MED LIST changes: -HYOS125TA PO; -LORA0.5T5 PO; -MORP20SO3 PO; -PANT20TA51 PO
[2019-05-08] MEDS ORDERED: NS 1,000 ML IV SCH (09:43)
[2019-05-08 10:31] LABS: BASO % 0.2 % (0.0-1.0); EOS % 0.7 % (0.0-3.0); HEMATOCRIT 44.9 % (42.0-52.0); HEMOGLOBIN 15.2 g/dl (13.5-17.5); LYMPH # 0.3 10^3/uL (1.5-5.0); LYMPH % 7.6 % (24.0-44.0); MEAN CORPUSCULAR HEMOGLOBIN 31.4 pg (27.0-33.0); MEAN CORPUSCULAR HGB CONC 33.9 g/dl (32.0-36.5); MEAN CORPUSCULAR VOLUME 92.8 fl (80.0-96.0); MONO # 0.3 10^3/uL (0.0-0.8); MONO % 6.4 % (0.0-5.0); NEUTROPHILS # 3.4 10^3/uL (1.5-8.5); NEUTROPHILS % 82.7 % (36.0-66.0); RED BLOOD COUNT 4.84 10^6/uL (4.30-6.10); WHITE BLOOD COUNT 4.1 10^3/uL (4.0-10.0)
[2019-05-08 10:56] LABS: PLATELET COUNT, AUTOMATED 90 10^3/uL (150-450)
[2019-05-08 11:12] LABS: ALT/SGPT 56 U/L (12-78); BILIRUBIN,DIRECT 0.2 MG/DL (0.0-0.2); BILIRUBIN,TOTAL 0.9 MG/DL (0.2-1.0); CK-MB VALUE MASS 2.3 NG/ML (<3.6); CPK CREATINE PHOSPHOKINASE 125 U/L (39-308); LIPASE 140 U/L (73-393); MB/CK RELATIVE INDEX 1.84 (< OR =4); TOTAL PROTEIN 5.9 GM/DL (6.4-8.2); TROPONIN I 0.03 NG/ML (< 0.10)
[2019-05-08 12:25] LABS: BLOOD UREA NITROGEN 25 MG/DL (7-18); CALCIUM LEVEL 8.4 MG/DL (8.8-10.2); CARBON DIOXIDE LEVEL 25 MEQ/L (21-32); CHLORIDE LEVEL 106 MEQ/L (98-107); CREATININE FOR GFR 1.05 MG/DL (0.70-1.30); GLOMERULAR FILTRATION RATE > 60.0 (>42); GLUCOSE, FASTING 169 MG/DL (70-100); POTASSIUM SERUM 4.7 MEQ/L (3.5-5.1); SODIUM LEVEL 138 MEQ/L (136-145)
[2019-05-08] MEDS ORDERED: ISOVUE-370 76% 100ML VIAL (Q9967) As Ordered ONE (12:27)
[2019-05-08] MEDS ORDERED: LORazepam 2 MG/ML VIAL (J2060) IV STA (12:33)
--- NOTE | 2019-05-08 13:04 | REP ---
Clinical: Abdominal pain. Technique: Axial contrast enhanced images from the lung bases to the pubic symphysis with coronal and sagittal re-formations using 100 ml Isovue 370 intravenous contrast material. Findings: The lung bases demonstrate pulmonary emboli to the bilateral lower lobes mild associated ground-glass opacities and scattered atelectasis. Liver, spleen, collapsed gallbladder, bilateral adrenal glands and kidneys appear normal. Irregular low density soft tissue involving the pancreatic head with extension into the body is concerning for pancreatic malignancy. Small adjacent lymph nodes cannot be excluded. The enteric system is without obstruction or acute inflammatory process. Colonic diverticulosis noted without acute diverticulitis. Normal terminal ileum and appendix identified in the right lower quadrant. Pelvis demonstrates prostatomegaly a normal bladder. No ascites. No free air. No significant adenopathy. Abdominal aorta without aneurysm or dissection. Skeletal structures are intact. Impression: 1. Significant lung base findings including pulmonary emboli to the lower lobes with associated ground-glass opacities and mild scattered atelectasis. 2. 3.0 x 2.5 x 3.0 centimeter low density lesion involving the head of the pancreas concerning for malignancy and require further investigation. 3. Diverticulosis. 4. Prostatomegaly. 5. No ascites, focal inflammatory stranding, or significant adenopathy noted. Electronically Signed by Lance Bolaños MD 05/08/2019 12:56 P
[2019-05-08] MEDS ORDERED: AMLO25TA PO (14:03)
[2019-05-08] MEDS ORDERED: DEXA4TA PO (14:03)
[2019-05-08] MEDS ORDERED: PANT20TA51 PO (14:03)
[2019-05-08] MEDS ORDERED: ACETAMINOPHEN TAB 650MG DOSE (2X325MG) PO PRN (15:15)
[2019-05-08 15:16] LABS: INR 1.01
--- NOTE | 2019-05-08 16:07 | HPEPDOC ---
[facility] Medical History & Physical Date of Admission May 08, 2019 Date of Service: May 08, 2019 Primary Care Physician: Socorro Bledsoe Attending Physician: TIFFANY LAWLER MD History and Physical CHIEF COMPLAINT: Right flank pain HISTORY OF PRESENT ILLNESS: Patient is a 73-year-old male who presents to the hospital with a chief complaint of right flank pain. Patient has a past history of malignant melanoma with metastasis to his brain. Patient had received radiation treatment for the metastasis in his brain. Patient had a discussion with oncology and his prior admission one month ago that if we're able to find any distant metastasis outside of the cranium, that hospice would be his best option. Patient agreed at that time and investigation did not turn up any distant metastasis. Patient had a CT scan of the abdomen and pelvis performed in the emergency room today which showed a new mass in the head of the pancreas as well as bilateral pulmonary emboli in the lower lung aranda. Patient says he is comfortable however, it is difficult to assess as the patient is somewhat confused according to family. PAST MEDICAL HISTORY: 1. Malignant melanoma with metastasis to brain and bone. 2. Hypertension. PAST SURGICAL HISTORY: 1. Excisional biopsy left axilla, 09/19/2018. 2. Left axillary lymph node dissection, 11/04/2018. 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 REVIEW OF SYSTEMS: General: Patient denies fevers, chills, night sweats, unintentional weight loss HEENT: Patient denies headaches, changes in vision, sore throat. Cardiovascular: Patient denies chest pain, chest pressure, or palpitations Respiratory: Patient denies shortness of breath, cough GI: Patient denies abdominal pain, nausea, vomiting, diarrhea : Patient denies pain or difficulty with urination Neurological: Patient denies numbness or tingling in extremities Extremities: Patient denies swelling or pain in extremities Skin: Patient denies any rashes or lesions. Hematologic: Patient denies any easy bruising. Lymphatic: Patient denies any lumps in his neck, axilla, or groin. HOME MEDICATIONS: Please see below. PHYSICAL EXAMINATION: VITAL SIGNS: Temperature 97.7F, pulse 1, respiratory rate 22, blood pressure 127/92, pulse oximetry 90 % on room air. General: Alert but not fully oriented male patient who was laying comfortably on the stretcher in the ER. Patient does not appear to be in any acute distress. Patient was able to answer simple questions and is alert to his name, date of , and date however, he was slightly confused about where he was. When asked where he was initially said [place] and then [place] before finally deciding he was in [place]. HEENT: Normocephalic, atraumatic, moist mucous membranes, posterior pharynx was nonerythematous, tympanic membranes are pearly-lawson without erythema. Neck: No lymphadenopathy, thyromegaly, or carotid bruits. Cardiac: Regular rate and rhythm, no murmurs, normal S1, normal S2 Pulm: Clear to auscultation bilaterally. No wheezes, rhonchi, rales Abd: Nondistended, nontender to palpation, normal bowel sounds Ext: No edema bilateral lower extremities Neuro: Patient had equal strength in upper and lower extremities bilaterally. Patient reported sensation to light touch in upper and lower extremities bilaterally. Skin: Skin of the arms, lower legs, abdomen, back, head and neck were examined did not show any evidence of rash or lesions. LABORATORY DATA: See below. IMAGING: A CT of the abdomen and pelvis performed with IV contrast was reported to show significant lung base findings include pulmonary emboli to the lower lobes with associated ground glass opacities and mild scattered atelectasis. 3 x 2.5 x 3 cm low density lesion involving the head of the pancreas concerning for malignancy and requires further investigation, diverticulosis, enlarged prostate, no ascites, focal inflammatory stranding or significant adenopathy noted MICROBIOLOGY: Please see below. ASSESSMENT: Patient is a 73-year-old male who presented to the emergency department with right flank pain who was found to have a mass in the head of his pancreas that is concerning for metastasis of his melanoma.. PLAN: 1. Right flank pain. This is most likely secondary to the newly found 3.0 x 2.5 x 3.0 cm low-density lesion in the head of the pancreas. At this time the patient is resting comfortably in the emergency room. We will continue to monitor the patient and control his pain. 2. Malignant melanoma with metastasis to brain, bone, and possibly pancreas based on new imaging findings. In discussion with the patient and his family, it seems like the patient would like no further testing and will like to go to comfort measures only. This had been discussed in the past with the patient at his last hospitalization one month ago with Dr. Martinez of oncology. Patient's healthcare proxy is on her way from [place] at the time of dictation. Based on my examination and conversation with the patient it does not appear that the patient fully grasp the gravity of the situation and may not be able to make his own decision. It seems like the patient had a discussion with his family that if he was to have another distant metastasis that they will go to comfort measures only. 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 At this time, we will continue with his home medications until healthcare proxy arrives in we have the full discussion about comfort measures only with possible hospice consultation. 3. Hypertension. We will continue with home medication. 4. Brain metastasis, we will continue with Keppra for seizure prophylaxis. 5. DVT prophylaxis patient was not able to be anticoagulated secondary to radiation of the brain for the fear of intracranial hemorrhage. We will continue to not anticoagulate the patient at this time. 6. CODE STATUS: At this time we'll wait for the patient's healthcare proxy in order to make a full designation for DNR status as the patient does not appear to fully grasp the situation nor did he out right say to me that he would like to be a DO NOT RESUSCITATE. Vital Signs Vital Signs Date Time Temp Pulse Resp B/P (MAP) Pulse Ox O2 Delivery O2 Flow Rate FiO2 05/08/19 12:45 91 127/92 (104) 90 05/08/19 09:00 97.7 22 Room Air Laboratory Data Labs 24H Laboratory Tests 2 05/08/19 10:16: Immature Granulocyte % (Auto) 2.4, Neutrophils (%) (Auto) 82.7H, Lymphocytes (%) (Auto) 7.6L, Monocytes (%) (Auto) 6.4H, Eosinophils (%) (Auto) 0.7, Basophils (%) (Auto) 0.2, Neutrophils # (Auto) 3.4, Lymphocytes # (Auto) 0.3L, Monocytes # (Auto) 0.3, Eosinophils # (Auto) 0.0, Basophils # (Auto) 0.0, Nucleated Red Blood Cells % (auto) 0.7H, Immature Platelet Fraction 2.1, Anion Gap 7L, Glomerular Filtration Rate > 60.0, Calcium Level 8.4L, Total Bilirubin 0.9, Direct Bilirubin 0.2, Aspartate Amino Transf (AST/SGOT) 35, Alanine Aminotransferase (ALT/SGPT) 56, Alkaline Phosphatase 83, Total Creatine Kinase 125, Creatine Kinase MB 2.3, Creatine Kinase MB Relative Index 1.84, Troponin I 0.03, Total Protein 5.9L, Albumin 3.0L, Albumin/Globulin Ratio 1.03, Lipase 140 05/08/19 14:48: CBC/BMP Laboratory Tests 05/08/19 10:16 Microbiology Microbiology 05/08/19 Blood Culture, Received Pending 05/08/19 Blood Culture, Received Pending Home Medications Scheduled Amlodipine Besylate (Amlodipine Besylate) 2.5 Mg Tablet, 2.5 MG PO DAILY Dexamethasone (Dexamethasone) 4 Mg Tablet, 2 MG PO BID Levetiracetam (Keppra) 500 Mg Tablet, 1 TAB PO BID Nivolumab (Opdivo) 240 Mg/24 Ml Vial, 480 MG IV QMONTH family thinks he recieved 05/07/19 Pantoprazole Sodium (Pantoprazole Sodium) 20 Mg Tablet.dr, 20 MG PO DAILY Allergies Coded Allergies: No Known Allergies (Unverified , 02/09/19) A-FIB/CHADSVASC A-FIB History Current/History of A-Fib/PAF?: No PIA ARECHIGA DO May 08, 2019 16:07
--- NOTE | 2019-05-08 16:48 | REP ---
Bilateral lower extremity deep vein duplex ultrasound for thrombus: There is occlusive thrombus in the popliteal veins bilaterally. The femoral veins demonstrate no evidence of thrombus on the right or the left. The deep veins are evaluated with duplex ultrasound including compression, Doppler color flow and Doppler waveforms at multiple levels bilaterally. Impression: There is occlusive thrombus in the popliteal veins bilaterally. Electronically Signed by Neal Carvajal MD 05/08/2019 04:39 P
[2019-05-08 17:15] VITALS: BP 154/94
[2019-05-08 22:00] VITALS: BP 140/88
[2019-05-08] MEDS: levETIRAcetam 250MG TABLET (KEPPRA) PO SCH (22:07)
[2019-05-09] MEDS ORDERED: MORPHINE 2 MG/ML 1ML VIAL (J2270) IV PRN (08:45)
[2019-05-09] MEDS ORDERED: SCOPOLAMINE 1MG TRANSDERMAL PATCH TOP PRN (08:45)
[2019-05-09] MEDS: levETIRAcetam 250MG TABLET (KEPPRA) PO SCH ×2 (09:42→20:35)
[2019-05-09] MEDS: POLYVINYL ALCOHOL OPHTH SOLN 15 ML(LIQUITEARS) OU SCH ×4 (09:42→20:35)
[2019-05-09] MEDS: PANTOPRAZOLE 20 MG TAB PO SCH (09:42)
[2019-05-09] MEDS ORDERED: MORPHINE 10MG/0.5ML ORAL CONCENTRATE SOLUTION U/D SL PRN (12:00)
--- NOTE | 2019-05-09 12:03 | IPNPDOC ---
Text Note Date of Service The patient was seen on 05/09/19. NOTE Subjective: Patient is a 73-year-old male who presented to the hospital with right flank pain. Patient has a history of metastatic malignant melanoma. Patient was found to have a mass in his pancreas. In talking with the patient's healthcare proxy, they decided to go on hospice. Patient was deemed incompetent to make his own decisions as he has multiple metastasis to his brain and does not fully understand that decision. Patient's daughter, who is his healthcare proxy, has made the decision in signed the form to make him comfort measures only. Review of systems Patient denies having any pain anywhere Objective: Vitals: (see below) Gen.: Alert but not oriented male patient who is resting comfortably in bed watching movies on a laptop. Cardiovascular: Regular rate and rhythm with no murmurs Labs (see below) Images: No new imaging is been performed. Assessment: 73-year-old male who presented with right flank pain possibly secondary to metastasis and malignant melanoma to the pancreas. Patient is comfortable at this time and has been made comfort measures only. Plan 1. Right flank pain. Most likely secondary to newly found 3.0 x 2.5 x 3.0 low density lesion in the head of the pancreas. Patient has been made comfort measures only. 2. Melanoma with metastasis to brain and bone and possibly pancreas based on new imaging findings. Patient has been made comfort measures only and hospice consu lt is pending for [facility]. 3. Hypertension. Patient's home medication has been discontinued. 4. Brain metastasis, Keppra has been continued for seizure prophylaxis. DVT prophy: None due to comfort measures only. Dispo: Pending hospice consult VS,Froilan, I+O VS, Froilan, I+O Vital Signs Date Time Temp Pulse Resp B/P (MAP) Pulse Ox O2 Delivery O2 Flow Rate FiO2 05/09/19 07:45 2.0 05/09/19 06:00 99.1 05/08/19 22:00 84 18 140/88 (105) 93 Nasal Cannula I&O- Last 24 Hours up to 6 AM 05/09/19 06:00 Intake Total 1120 ml Output Total 0 ml Balance 1120 ml PIA ARECHIGA DO May 09, 2019 12:03
[2019-05-10] MEDS: PANTOPRAZOLE 20 MG TAB PO SCH (09:14)
[2019-05-10] MEDS: levETIRAcetam 250MG TABLET (KEPPRA) PO SCH ×2 (09:14→20:27)
[2019-05-10] MEDS: POLYVINYL ALCOHOL OPHTH SOLN 15 ML(LIQUITEARS) OU SCH ×4 (09:14→20:27)
--- NOTE | 2019-05-10 11:39 | IPNPDOC ---
Text Note Date of Service The patient was seen on 05/10/19. NOTE Subjective: No acute overnight events. No new medical complaints. Objective: General: NAD, lying comfortably in bed A/P: 73-year-old male who presented with right flank pain possibly secondary to metastasis and malignant melanoma to the pancreas. Patient is comfortable at this time and has been made comfort measures only. Dispo: Pending hospice consult VS,Fishbone, I+O VS, Fishbone, I+O Vital Signs Date Time Temp Pulse Resp B/P (MAP) Pulse Ox O2 Delivery O2 Flow Rate FiO2 05/10/19 08:00 2.0 05/09/19 06:00 99.1 05/08/19 22:00 84 18 140/88 (105) 93 Nasal Cannula I&O- Last 24 Hours up to 6 AM 05/10/19 06:00 Intake Total 1640 ml Output Total 600 ml Balance 1040 ml TIFFANY LAWLER MD May 10, 2019 11:39
--- NOTE | 2019-05-10 20:33 | ECGEPIP ---
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
[2019-05-11] MEDS: PANTOPRAZOLE 20 MG TAB PO SCH (08:46)
[2019-05-11] MEDS: levETIRAcetam 250MG TABLET (KEPPRA) PO SCH (08:46)
[2019-05-11] MEDS: POLYVINYL ALCOHOL OPHTH SOLN 15 ML(LIQUITEARS) OU SCH ×2 (08:47→13:29)
--- NOTE | 2019-05-11 10:09 | IPNPDOC ---
Text Note Date of Service The patient was seen on 05/11/19. NOTE Subjective: Patient seen and examined. No acute overnight events. Patient is resting comfortably with no complaints. Objective: General: NAD, lying comfortably in bed A/P: 73 yo male with metastatic melanoma, currently [facility] D[facility] pending hospice eval #metastatic melanoma - [facility] DIVER - pending hospice eval #PE/DVT - bilateral lower lobe PE on CT, bilateral popliteal DVT - no a/c at this time due to possibility of brain hemorrhage due to brain mets and OFFSHORE DIVER status #HTN Dispo: pending hospice eval, patient is OFFSHORE DIVER VS,Fishbone, I+O VS, Fishbone, I+O Vital Signs Date Time Temp Pulse Resp B/P (MAP) Pulse Ox O2 Delivery O2 Flow Rate FiO2 05/10/19 21:00 2.0 05/09/19 06:00 99.1 05/08/19 22:00 84 18 140/88 (105) 93 Nasal Cannula I&O- Last 24 Hours up to 6 AM 05/11/19 06:00 Intake Total 1660 ml Balance 1660 ml TIFFANY LAWLER MD May 11, 2019 10:09
[2019-05-11] MEDS ORDERED: MORP20SO3 PO (13:59)
[2019-05-11] MEDS ORDERED: HYOS125TA PO (13:59)
[2019-05-11] MEDS ORDERED: LORA0.5T5 PO (13:59)
== END 2019-05-11 14:50 | disposition home or self-care (01) | DRG 374 ==
LOC: M ED 09:00 → M ED INP 15:18 → ENRESERVTM 16:07 → ENRESERVDT 16:07 → M MS5PR 17:05
PROVIDERS: ADMIT Internal Medicine; ATTEND Internal Medicine
DX: C78.89 Secondary malignant neoplasm of other digestive organs (principal); I26.99 Other pulmonary embolism without acute cor pulmonale; C79.31 Secondary malignant neoplasm of brain; C79.51 Secondary malignant neoplasm of bone; I82.431 Acute embolism and thrombosis of right popliteal vein; I82.432 Acute embolism and thrombosis of left popliteal vein; C43.9 Malignant melanoma of skin, unspecified; I10 Essential (primary) hypertension; Z51.5 Encounter for palliative care; Z66 Do not resuscitate; Z79.899 Other long term (current) drug therapy